=== PATIENT | male | born 2000 | race Caucasian/White ===

== ENCOUNTER 2021-03-21 14:39 | Emergency (ER) | payer OTHER ==
[2021-03-21] MEDS ORDERED: Lidocaine 1% w/Epinephrine 1:100K 20 ML VIAL ONE (14:57)
== END 2021-03-21 15:31 | disposition home or self-care (01) ==
LOC: CSHERS 14:39
DX: L02.11 Cutaneous abscess of neck (principal)
CPT/HCPCS: 10060

== ENCOUNTER 2022-05-20 20:49 | Emergency (ER) | payer OTHER ==
[2022-05-20] MEDS ORDERED: cloNIDine 0.1 MG TAB ONE (22:51)
[2022-05-20] MEDS ORDERED: cefTRIAXone\\ROCEPHIN 1 GM VIAL ONE (22:51)
[2022-05-20] MEDS ORDERED: Lidocaine 1% w/Epinephrine 1:200K 30 ML VIAL ONE (22:51)
[2022-05-20 23:05] LABS: #Basophils 0.1 10x3/uL (0.0-0.2); #Eosinphils 0.2 10x3/uL (0.0-0.5); #Monocytes 0.9 10x3/uL (0.0-1.1); %Basophils 0.5 % (0.0-2.0); %Eosinophils 1.9 % (0.0-6.0); %Lymphocytes 23.4 % (18.0-47.0); %Monocytes 7.1 % (0.0-10.0); %Neutrophils 66.8 % (40.0-75.0); Hemoglobin 16.3 g/dL (13.5-17.5); Mean Corpuscular Volume 85.3 fl (81.2-95.1); Mean Platelet Volume 10.9 fl (7.4-10.4); Platelet Count 316 10x3/uL (150-450); RBC Distribution Width 13.7 % (11.5-14.5); Red Blood Cell (RBC) Count 5.63 10x6/uL (4.32-5.72)
[2022-05-20 23:10] LABS: ALT (SGPT) 98 U/L (8-55); AST (SGOT) 38 U/L (5-34); Albumin 4.6 g/dL (3.5-5.0); Alkaline Phosphatase 64 U/L (40-110); Anion Gap 14 mmol/L (10-20); BUN (Urea Nitrogen) 14 mg/dL (8.9-20.6); Bilirubin, Total 0.5 mg/dL (0.2-1.2); Calc. Creatinine Clearance 0 mL/min (70-130); Carbon Dioxide 25 mmol/L (22-29); Chloride 105 mmol/L (98-107); Estimated GFR 107; Globulin 3.6 g/dL (2.4-3.5); Glucose 110 mg/dL (70-105); Potassium 3.5 mmol/L (3.5-5.1); Protein, Total 8.2 g/dL (6.0-8.3); Sodium 140 mmol/L (136-145)
== END 2022-05-21 00:56 | disposition home or self-care (01) ==
LOC: CSHERS 20:49
DX: L02.11 Cutaneous abscess of neck (principal); D17.0 Benign lipomatous neoplasm of skin and subcutaneous tissue of head, face and neck; I10 Essential (primary) hypertension
CPT/HCPCS: 10060; 80053; 85025; 96365; 96366; J0696